=== PATIENT | female | born 1985 | race Caucasian/White ===

== ENCOUNTER 2021-04-25 18:45 | Inpatient (IN) | payer OTHER ==
[~2021-04-25] VITALS: Ht 160 cm; Wt 105.7 kg
[2021-04-25] MEDS ORDERED: OMEP20TA5 PO (18:57)
--- NOTE | 2021-04-25 19:11 | NUR ---
Assumed care of patient from day shift DYLON Matias.
--- NOTE | 2021-04-25 19:15 | NUR ---
PATIENT BIB [facility] WITH C/O WITNESSED SEIZURE. NO REPORTED HX OF SEIZURES. PATIENT AAOX.4 IN NO APPARENT DISTRESS. DENIES ANY PAIN OR DISCOMFORT AT THIS TIME.
--- NOTE | 2021-04-25 19:29 | NUR ---
Dr. Welch on bedside for MSE.
[2021-04-25 20:04] LABS: HEMATOCRIT 36.8 % (31.2-41.9); MEAN CORPUSCULAR HEMOGLOBIN 29.7 uug (24.7-32.8); MEAN CORPUSCULAR VOLUME 88.4 fL (75.5-95.3); PLATELET COUNT (AUTO) 375 K/uL (179-408)
[2021-04-25 20:09] LABS: CARBON DIOXIDE 28 mmol/L (21-32); CHLORIDE 101 mmol/L (98-107); CREATININE 0.8 mg/dL (0.6-1.3); GLUCOSE 111 mg/dL (74-106); POTASSIUM 3.6 mmol/L (3.5-5.1); UREA NITROGEN, BLOOD 11 mg/dL (7-18)
[2021-04-25 20:14] LABS: ALANINE AMINOTRANSFERASE 65 U/L (14-59); ALKALINE PHOSPHATASE 76 U/L (50-136); ASPARTATE AMINOTRANSFERASE 33 U/L (15-37); BILIRUBIN,TOTAL 0.2 mg/dL (0.2-1.0); TOTAL PROTEIN, SERUM 7.9 g/dL (6.4-8.2)
[2021-04-25 20:16] LABS: BILIRUBIN,DIRECT 0.1 mg/dL (0.0-0.2)
--- NOTE | 2021-04-25 20:16 | NUR ---
Back from CT.
[2021-04-25 20:20] LABS: ETHANOL < 3 MG/DL (0-0)
[2021-04-25 20:32] LABS: *BILIRUBIN,URIN NEGATIVE (NEGATIVE); *CLARITY,URINE CLEAR (CLEAR); *COLOR,URINE YELLOW (YELLOW); *KETONES,URINE NEGATIVE (NEGATIVE); *UROBILINOGEN,URINE 0.2 E.U./dl (NORMAL); LEUKOCYTE ESTERASE ,URINE NEGATIVE (NEGATIVE); NITRITE, URINE NEGATIVE (NEGATIVE); PH,URINE 5.5 (5.0-8.0); UGLUCOSE NEGATIVE (NEGATIVE)
[2021-04-25 20:36] LABS: *BLOOD, URINE TRACE (NEGATIVE)
[2021-04-25 20:40] LABS: BACTERIA,URINE NONE SEEN /HPF (NONE SEEN); SQUAMOUS EPITHELIAL CELL,UR FEW /HPF (NONE SEEN)
[2021-04-25 20:45] LABS: *AMPHETAMINE, URINE NEGATIVE (NEGATIVE); *CANNABINOID, URINE NEGATIVE (NEGATIVE); *COCCAINE, URINE NEGATIVE (NEGATIVE); *OPIATE, URINE NEGATIVE (NEGATIVE); *PHENCYCLIDINE SCREEN,URINE NEGATIVE (NEGATIVE)
--- NOTE | 2021-04-25 21:13 | NUR ---
Dr. Welch on bedside.
[2021-04-25] MEDS: MAGNESIUM SULFATE/D5W 100 ML IV SCH ×2 (21:32→22:32)
[2021-04-25] MEDS ORDERED: MAGNESIUM SULFATE/D5W 100 ML ONE (21:41)
--- NOTE | 2021-04-26 00:30 | NUR ---
Patient request some food. Dr. Welch notified and provided patient with sandwich and juice.
--- NOTE | 2021-04-26 01:11 | NUR ---
Epic panel call placed, spoke to Capri , she stated she will get a hold of Dr. Nunez for admitting.
--- NOTE | 2021-04-26 01:19 | NUR ---
Dr. Welch on panel call with Dr. Nunez. Patient accepted for admission to telemetry unit. Dx. Seizure.
[2021-04-26] MEDS ORDERED: LORAZEPAM 2 MG/1 ML VIAL IV PRN (01:30)
[2021-04-26] MEDS ORDERED: CEFTRIAXONE 1 G in IV DEXTROSE 5% 50 ML IV SCH (01:30)
[2021-04-26] MEDS ORDERED: ACETAMINOPHEN 325 MG TABLET PO PRN (01:30)
[2021-04-26] MEDS ORDERED: hydrALAZINE HCL 20 MG/1 ML VIAL IV PRN (01:30)
[2021-04-26] MEDS ORDERED: ONDANSETRON 4 MG/2 ML VIAL IV PRN (01:30)
[2021-04-26] MEDS ORDERED: MORPHINE SULFATE 2 MG/1 ML DISP.SYRIN IV PRN (01:30)
--- NOTE | 2021-04-26 02:00 | NUR ---
Report given to telemetry unit DYLON Villalta.
--- NOTE | 2021-04-26 02:00 | NUR ---
Report for incoming admission received from ER nurse
--- NOTE | 2021-04-26 02:25 | NUR ---
Pt. admitted to telemetry unit, under care of Dr. Nunez. Belongs List completed.
--- NOTE | 2021-04-26 02:35 | NUR ---
Admitted to Telemetry, NSR. AA0 x4. Is a good historian. Patient placed on seizure precautions. Saline lock to right hand is intact and patent. States she has 7/10 chronic back pain which is relieved with rest. On RA, denies any SOB. Gait is steady. Needs met and assessed, call light within reach.
[2021-04-26 02:40] VITALS: BP 124/78
[2021-04-26 04:35] VITALS: BP 115/65
[2021-04-26] MEDS ORDERED: CEFTRIAXONE 1 G VIAL ONE (04:48)
--- NOTE | 2021-04-26 06:34 | NUR ---
TEXTED DR. LYMAN FOR MRI APPROVAL.
--- NOTE | 2021-04-26 06:54 | NUR ---
Patient slept intermittent since admission, in no acute distress. Neuro check is clear. No SOB, on RA. Call light within reach.
[2021-04-26 06:57] LABS: THYROID STIMULATING HORMONE 7.219 mIU/mL (0.358-3.740)
[2021-04-26 11:32] VITALS: BP 124/83
--- NOTE | 2021-04-26 15:12 | NUR ---
pt went to [facility] via ambulances for mri
[2021-04-26] MEDS ORDERED: GADOTERATE MEGLUMINE 10 MMOL/20 ML VIAL IV ONE (16:05)
[2021-04-26] MEDS ORDERED: levETIRAcetam IV 1,000 MG in IV DEXTROSE 5% 100 ML IV ONE (18:30)
[2021-04-26 20:27] VITALS: BP 102/62
[2021-04-27 00:17] VITALS: BP 102/63
[2021-04-27 05:22] VITALS: BP 103/68
[2021-04-27] MEDS ORDERED: CEFTRIAXONE 2 G in IV DEXTROSE 5% 100 ML IV SCH (06:00)
[2021-04-27 06:51] LABS: HEMATOCRIT 36.6 % (31.2-41.9); MEAN CORPUSCULAR HEMOGLOBIN 29.7 uug (24.7-32.8); MEAN CORPUSCULAR VOLUME 89.3 fL (75.5-95.3); PLATELET COUNT (AUTO) 357 K/uL (179-408)
[2021-04-27 07:33] LABS: BILIRUBIN,TOTAL 0.3 mg/dL (0.2-1.0); PHOSPHOROUS 4.3 mg/dL (2.5-4.9); POTASSIUM 3.5 mmol/L (3.5-5.1); TOTAL PROTEIN, SERUM 7.2 g/dL (6.4-8.2)
--- NOTE | 2021-04-27 08:00 | NUR ---
AWAKE ALERT AND ORIENTED X3 DENIES PAIN OR HEADACHE, NO SS OF SEIZURE. PATIENT PLEASANT AND ABLE TO TOLERATE FOOD. SR ON MONITOR
[2021-04-27] MEDS ORDERED: levETIRAcetam 500 MG TABLET PO SCH ×2 (09:00→21:00)
--- NOTE | 2021-04-27 10:30 | NUR ---
SEEN BY Maik PARKER FOR FOLLOW-UP, EXAMINED PATIENT AND GAVE DISCHARGE ORDERS
[2021-04-27] MEDS ORDERED: LEVE500T9 PO (10:50)
[2021-04-27] MEDS ORDERED: LEVE1000 PO (10:50)
[2021-04-27 12:00] VITALS: BP 118/78
--- NOTE | 2021-04-27 13:34 | NUR ---
discharged home stable accompanied by friend. RX and follow-up instruction given.
== END 2021-04-27 13:37 | disposition home or self-care (01) | DRG 101 ==
LOC: ER 18:48 → TELE3 04-26 02:06
PROVIDERS: ADMIT Internal Medicine; ATTEND Internal Medicine
PROC: 4A00X4Z Measurement of Central Nervous Electrical Activity, External Approach (ICD-10-PCS; principal; 2021-04-26)
DX: R56.9 Unspecified convulsions (principal); R94.31 Abnormal electrocardiogram [ECG] [EKG]; Z87.820 Personal history of traumatic brain injury; R07.9 Chest pain, unspecified; E03.9 Hypothyroidism, unspecified; J32.1 Chronic frontal sinusitis; K21.9 Gastro-esophageal reflux disease without esophagitis; Z88.8 Allergy status to other drugs, medicaments and biological substances; G89.29 Other chronic pain; M54.9 Dorsalgia, unspecified
CPT/HCPCS: 36415; 70450; 70553; 83735; 84100; 84443; 84481; 85025; 85651; 86140; 93005; 93307; A4663; A9575; G0378; G0480; J0696; J1953; J3475; J7050; J7060